=== PATIENT | female | born 1975 | race Two or more races ===

== ENCOUNTER 2018-04-05 12:09 | Emergency (ER) | payer SELFPAY ==
[~2018-04-05] VITALS: Ht 170.2 cm; Wt 79.4 kg
[2018-04-05] MEDS ORDERED: NKM (12:18)
[2018-04-05] MEDS ORDERED: Ketorolac 30mg Inj IM ONE (12:30)
--- NOTE | 2018-04-05 12:36 | Emergency Room Report ---
History of Present Illness General Chief Complaint: Lower Back Pain or Injury Source: Patient Present Illness HPI patient is a 42-year-old female with past medical history of diabetes type 2 controlled, here complaining of 3 days of low back pain after lifting heavy objects at work. Patient is rating the pain 7 out of 10 without any radiation denying tingling and numbness. Has taken [id number] Tylenol with minimal improvement. Patient claims that walking and leaning forward makes her pain worse. Denies injury, fall, accident. Denies bowel/urinary incontinence and saddle paresthesia. Denies SOB chest pain palpitation abdominal pain nausea vomiting and all other associated symptoms. Allergies: Coded Allergies: No Known Allergies (Unverified , 04/05/18) Patient History Past Medical History: see triage record Past Surgical History: none Now: No Reviewed Nursing Documentation: PMH: Agreed; PSxH: Agreed Nursing Documentation-PMH Past Medical History: No History, Except For Hx Diabetes: Yes Review of Systems All Other Systems: negative except mentioned in HPI Physical Exam Vital Signs Date Time Temp Pulse Resp B/P (MAP) Pulse Ox O2 Delivery O2 Flow Rate FiO2 04/05/18 12:13 97.4 82 20 153/93 97 Room Air 97.3 Sp02 EP Interpretation: reviewed, normal General Appearance: normal inspection, well appearing, no apparent distress, alert, GCS 15 Head: normocephalic Eyes: bilateral eye normal inspection, bilateral eye PERRL ENT: normal ENT inspection, hearing grossly normal, normal pharynx Neck: normal inspection, full range of motion, supple Respiratory: normal inspection, chest non-tender, lungs clear, no rhonchi, no wheezing Cardiovascular #1: normal inspection, normal peripheral pulses, regular rate, rhythm, no edema, no murmur Gastrointestinal: normal inspection, non tender, soft Rectal: deferred Genitourinary: deferred Musculoskeletal: digits/nails normal, gait/station normal, normal range of motion, tender - lumbar and sacral region, negative straight leg Neurologic: normal inspection, alert, oriented x3, responsive, unit nurse III-XII nml as tested, motor strength/tone normal Psychiatric: normal inspection, judgement/insight normal, memory normal Skin: normal inspection, normal color, no rash, warm/dry, palpation normal Lymphatic: normal inspection, no adenopathy Medical Decision Making PA Attestation All diagnosis and treatment plans were reviewed and discussed with supervising physician Dr. Tomas Diagnostic Impression: Primary Impression: Low back strain Additional Impression: Muscle spasm ER Course patient is a 42-year-old female with past medical history of diabetes type 2 controlled, here complaining of 3 days of low back pain after lifting heavy objects at work. Patient is rating the pain 7 out of 10 without any radiation denying tingling and numbness. Has taken [id number] Tylenol with minimal improvement. Patient claims that walking and leaning forward makes her pain worse. Denies injury, fall, accident. Denies bowel/urinary incontinence and saddle paresthesia. Denies SOB chest pain palpitation abdominal pain nausea vomiting and all other associated symptoms. Ddx considered but are not limited to muscle spasm, low back strain, oxygen Vital signs: are WNL, pt. is afebrile H&PE are most consistent with muscle spasm and low back strain ORDERS: Toradol 30 IM, naproxen 500 twice a day #30, patient has been told to start naproxen 24 hours after the Toradol has been administered. ED INTERVENTIONS: Toradol 30 IM DISCHARGE: At this time pt. is stable for d/c to home. Will provide printed patient care instructions, and any necessary prescriptions. Care plan and follow up instructions have been discussed with the patient prior to discharge. rice guidelines were explained to the patient, avoid strenuous physical activity , symptoms worsen not tingling numbness follow-up with the primary care provider Last Vital Signs Date Time Temp Pulse Resp B/P (MAP) Pulse Ox O2 Delivery O2 Flow Rate FiO2 04/05/18 12:13 97.4 82 20 153/93 97 Room Air 97.3 Disposition: HOME, SELF-CARE Condition: Stable Scripts Naproxen* (NAPROXEN*) 500 Mg Tablet 500 MG ORAL TWICE A DAY, #30 TAB Prov: Yajaira Walton 04/05/18 Patient Instructions: Lumbosacral Strain, Back Pain, Adult Additional Instructions: I was lifting heavy objects, take medication as directed, start taking naproxen 24 hours after Toradol has been administered. Rest hydrate elevates and also has seen icing and heating. Avoid strenuous physical activity, daily exercises advised if tingling numbness follows her primary care provider for possible MRI Yajaira Walton Apr 05, 2018 12:36
[2018-04-05] MEDS ORDERED: NAPROXEN500 M2 ORAL (12:37)
[2018-04-05 12:40] VITALS: BP 153/93
== END 2018-04-05 12:40 | disposition home or self-care (01) ==
LOC: EMR 12:40
DX: S39.012A Strain of muscle, fascia and tendon of lower back, initial encounter (principal); M62.838 Other muscle spasm; E11.9 Type 2 diabetes mellitus without complications; X50.0XXA Overexertion from strenuous movement or load, initial encounter; Y93.89 Activity, other specified; Y92.89 Other specified places as the place of occurrence of the external cause; Y99.0 Civilian activity done for income or pay
CPT/HCPCS: 96372; 99283; J1885

== ENCOUNTER 2018-06-13 06:41 | Emergency (ER) | payer SELFPAY ==
[~2018-06-13] VITALS: Ht 167.6 cm; Wt 81.6 kg
[~2018-06-13 06:41] MED LIST: NAPROXEN500 M2 ORAL; NKM
[2018-06-13 06:55] VITALS: BP 138/80
[2018-06-13] MEDS ORDERED: Ketorolac 60mg Inj IM ONE (07:15)
[2018-06-13 07:39] LABS: APPEARANCE,URINE SLIGHTLY CLOUDY; BILIRUBIN, URINE NEGATIVE (NEGATIVE); COLOR,URINE PALE YELLOW; GLUCOSE, URINE (UA) 4+ (NEGATIVE); KETONES,URINE NEGATIVE (NEGATIVE); LEUKOCYTE ESTERASE ,URINE 3+ (NEGATIVE); NITRITE,URINE NEGATIVE (NEGATIVE); PH,URINE 6 (4.5-8.0); PROTEIN,URINE NEGATIVE (NEGATIVE); UROBILINOGEN,URINE NORMAL MG/DL (0.0-1.0)
[2018-06-13] MEDS ORDERED: IBUPROFEN600 MG ORAL (07:46)
[2018-06-13] MEDS ORDERED: CYCLOBENZAPRINE10 MG ORAL (07:46)
[2018-06-13] MEDS ORDERED: CEPHALEXIN500 MG ORAL (07:54)
[2018-06-13 07:55] VITALS: BP 138/80
--- NOTE | 2018-06-13 14:50 | Emergency Room Report ---
History of Present Illness General Chief Complaint: Back Injury Source: Patient Present Illness HPI Patient is a 42-year-old female presented after increased back pain. The patient reports having prior fall. The patient been having chronic pain since then. Patient was reportedly on lifting restrictions. The patient reports having lifted a heavy object and subsequently having increased back pain. This is predominantly in the midline and slightly to the left. She denies any fever or vomiting. She denies any diarrhea. Pain is worse with extension. She denies any numbness or weakness to her extremities. She had been having normal bowel movements. Allergies: Coded Allergies: No Known Allergies (Unverified , 06/13/18) Patient History Past Medical History: see triage record Last Menstrual Period: 04/27 Now: No Reviewed Nursing Documentation: PMH: Agreed; PSxH: Agreed Nursing Documentation-PM Past Medical History: No History, Except For Hx Diabetes: Yes Review of Systems All Other Systems: negative except mentioned in HPI Physical Exam Vital Signs Date Time Temp Pulse Resp B/P (MAP) Pulse Ox O2 Delivery O2 Flow Rate FiO2 06/13/18 06:47 97.7 83 18 138/80 100 Room Air General Appearance: well appearing, no apparent distress, alert, GCS 15 Head: normocephalic, atraumatic ENT: hearing grossly normal, normal voice Neck: full range of motion, supple Respiratory: no respiratory distress, speaking full sentences Gastrointestinal: normal inspection, normal bowel sounds, non tender Genitourinary: no CVA tenderness Musculoskeletal: decreased range of mation - low back paraspinous tenderness Neurologic: normal inspection, alert, oriented x3, responsive, motor strength/ tone normal, normal gait Psychiatric: mood/affect normal Skin: no rash Medical Decision Making Diagnostic Impression: Primary Impression: Back pain Additional Impressions: Lumbar strain Urinary tract infection ER Course The patient presented for low back pain. Differential diagnosis included but was not limited to herniated disc, cauda equina syndrome, abdominal aortic aneurysm, perforated ulcer, spinal epidural abscess, spinal stenosis, lumbar fracture, metastatic lesion, pyelonephritis. The patient's symptoms are consistent with a lumbar strain. The patient was noted to have some evidence of urinary infection. Patient given prescription for antibiotics. Patient declined a CT imaging.The patient was advised follow-up with [facility] physician. Labs Test 06/13/18 07:28 Urine Color Pale yellow Urine Appearance Slightly cloudy Urine pH 6 (4.5-8.0) Urine Specific [place] 1.015 (1.005-1.035) Urine Protein Negative (NEGATIVE) Urine Glucose (UA) 4+ (NEGATIVE) Urine Ketones Negative (NEGATIVE) Urine Blood 1+ (NEGATIVE) Urine Nitrite Negative (NEGATIVE) Urine Bilirubin Negative (NEGATIVE) Urine Urobilinogen Normal MG/DL (0.0-1.0) Urine Leukocyte Esterase 3+ (NEGATIVE) Urine RBC 2-4 /HPF (0 - 2) Urine WBC 20-30 /HPF (0 - 2) Urine Squamous Epithelial Cells Many /LPF (NONE/OCC) Urine Bacteria Few /HPF (NONE) Urine Yeast Few /HPF (NONE) Urine HCG, Qualitative Negative (NEGATIVE) Last Vital Signs Date Time Temp Pulse Resp B/P (MAP) Pulse Ox O2 Delivery O2 Flow Rate FiO2 06/13/18 07:55 97.7 06/13/18 07:55 83 18 138/80 100 Room Air Status: improved Disposition: HOME, SELF-CARE Condition: Stable Scripts Cephalexin* (KEFLEX*) 500 Mg Capsule 500 MG ORAL EVERY 6 HOURS, #28 CAP Prov: Luke Tran MD 06/13/18 Cyclobenzaprine Hcl* (FLEXERIL*) 10 Mg Tablet 10 MG ORAL TID PRN for Muscle Spasm, #20 TAB Prov: Luke Tran MD 06/13/18 Ibuprofen* (MOTRIN*) 600 Mg Tablet 600 MG ORAL Q8H PRN for For Pain, #30 TAB 0 Refills Prov: Luke Tran MD 06/13/18 Departure Forms: Return to Work Return to Work in (Days): 3 Patient Instructions: Back Pain, Adult Luke Tran MD Jun 13, 2018 14:50
== END 2018-06-13 08:10 | disposition home or self-care (01) ==
LOC: MERGE 07:05 → EMR 07:05
DX: S39.012A Strain of muscle, fascia and tendon of lower back, initial encounter (principal); X50.0XXA Overexertion from strenuous movement or load, initial encounter; Y92.89 Other specified places as the place of occurrence of the external cause; G89.29 Other chronic pain; E11.9 Type 2 diabetes mellitus without complications; N39.0 Urinary tract infection, site not specified
CPT/HCPCS: 81003; 81025; 87086; 96372; 99283

== ENCOUNTER 2018-09-05 12:03 | Emergency (ER) | payer SELFPAY ==
[~2018-09-05] VITALS: Ht 162.6 cm; Wt 63.5 kg
[~2018-09-05 12:03] MED LIST changes: +CEPHALEXIN500 MG ORAL; +CYCLOBENZAPRINE10 MG ORAL; +IBUPROFEN600 MG ORAL
[2018-09-05 12:18] VITALS: BP 119/71
--- NOTE | 2018-09-05 12:24 | NUR ---
ED Nurse Note: Patient presents to ER due to low back pain, right, media side after lifting and carrying heavy boxes and trash bags today; reports no numbnses or tinging in BLE. Denies twisting back. Reports no loss of bowel or bladder control. Guarding noted. Ambulated to the chair with steady gait.
[2018-09-05] MEDS ORDERED: Ketorolac 30mg Inj IM ONE (12:45)
--- NOTE | 2018-09-05 12:56 | Emergency Room Report ---
History of Present Illness General Chief Complaint: Lower Back Pain or Injury Source: Patient Present Illness HPI 42-year-old female presents to the emergency department complaining of acute onset of 10 out of 10 in severity right-sided low back pain times one day. Patient reports that she noticed her symptoms when she lifted a heavy garbage bag at work. Patient reports having her pain exacerbated upon bending over or standing up very straight. Patient states she is able to walk she denies previous injury to her back. Patient denies midline back pain. Denies numbness tingling or loss of sensation or gross motor movements of the extremities, incontinence of bowel or bladder. Denies CP, Palpitations, LOC, AMS, dizziness, Changes in Vision, weakness or a sudden severe headache. Denies recent spinal procedures or cancer. Allergies: Coded Allergies: No Known Allergies (Unverified , 04/05/18) Patient History Past Medical History: see triage record Past Surgical History: none Pertinent Family History: none Last Menstrual Period: on period Reviewed Nursing Documentation: PMH: Agreed; PSxH: Agreed Nursing Documentation-PMH Past Medical History: No History, Except For Hx Diabetes: Yes Review of Systems All Other Systems: negative except mentioned in HPI Physical Exam Vital Signs Date Time Temp Pulse Resp B/P (MAP) Pulse Ox O2 Delivery O2 Flow Rate FiO2 09/05/18 12:18 98.1 84 14 119/71 99 Room Air Sp02 EP Interpretation: reviewed, normal General Appearance: alert, GCS 15, non-toxic, mild distress Head: normocephalic, atraumatic Eyes: bilateral eye normal inspection, bilateral eye PERRL ENT: hearing grossly normal, normal voice Neck: full range of motion Respiratory: lungs clear, normal breath sounds, speaking full sentences Cardiovascular #1: regular rate, rhythm, no edema Gastrointestinal: normal bowel sounds, soft Genitourinary: normal inspection, no CVA tenderness Musculoskeletal: back normal, gait/station normal - compensatory, decreased range of motion - Due to pain, pain occures and 40* forward flexion. , tender - TTP to the right paraspinal musculature of the lumbar spine. no midline spinous process TTP or step offs. Neurologic: alert, oriented x3, responsive, motor strength/tone normal, sensory intact, speech normal, other - no evidence of incontinence or saddle anesthesia, grossly normal Psychiatric: judgement/insight normal Skin: normal color, no rash, warm/dry, well hydrated Lymphatic: normal inspection, no adenopathy Medical Decision Making PA Attestation Dr. plasencia is my supervising Physician whom patient management has been discussed with. Diagnostic Impression: Primary Impression: Lumbosacral strain Qualified Codes: S39.012A - Strain of muscle, fascia and tendon of lower back , initial encounter ER Course 42-year-old female presents to the emergency department complaining of acute onset of 10 out of 10 in severity right-sided low back pain times one day. Patient reports that she noticed her symptoms when she lifted a heavy garbage bag at work. Patient reports having her pain exacerbated upon bending over or standing up very straight. Patient states she is able to walk she denies previous injury to her back. Patient denies midline back pain. Denies numbness tingling or loss of sensation or gross motor movements of the extremities, incontinence of bowel or bladder. Denies CP, Palpitations, LOC, AMS, dizziness, Changes in Vision, weakness or a sudden severe headache. Denies recent spinal procedures or cancer. Ddx considered but are not limited to Fracture, dislocation, contusion, Sprain/ Strain/Spasm, Epidural abscess, Neoplastic mets. Vital signs: are WNL, pt. is afebrile H&PE are most consistent with musculoskeletal injury will perform imaging to r/ o fractures/dislocations. ORDERS: - X-ray not warranted at this time, no bony ttp. ED INTERVENTIONS: - Toradol IM -Soma PO -Lidoderm TP -I do not identify an emergent condition at this time. With current presentation , pt. is stable for close outpatient follow up and conservative treatment. D/ w pt. to return promptly to ED with worsening or new symptoms.- Pt. verbalizes' understanding and agreement with proposed treatment plan.proposed treatment plan. DISCHARGE: At this time pt. is stable for d/c to home. Will provide printed patient care instructions, and any necessary prescriptions. Care plan and follow up instructions have been discussed with the patient prior to discharge. Last Vital Signs Date Time Temp Pulse Resp B/P (MAP) Pulse Ox O2 Delivery O2 Flow Rate FiO2 09/05/18 12:18 98.1 14 119/71 99 Room Air 09/05/18 12:18 84 Disposition: HOME, SELF-CARE Condition: Stable Departure Forms: Return to Work Return to Work Date: Sep 10, 2018 Work Restrictions: No Heavy Lifting, No Prolonged Standing Other Restrictions: light duty x 1 week, May return Sooner if Symptoms have resolved. Return to Full Activity: Sep 18, 2018 Patient Instructions: Lumbosacral Strain, Low Back Sprain With Rehab[facility] Additional Instructions: Take medications as directed. Follow up with a Primary Care Provider in 3-5 days, even if your symptoms have resolved. --Please review list of primary care clinics, if you do not already have a primary care provider Return sooner to ED if new symptoms occur, or current symptoms become worse. Do not drink alcohol, drive, or operate heavy machinery while taking Robaxin ( Muscle Relaxers) as this may cause drowsiness. - Please note that this Emergency Department Report was dictated using [employer] spec technology software, occasionally this can lead to erroneous entry secondary to interpretation by the dictation equipment. Ghazala Galeas Sep 05, 2018 12:56
[2018-09-05] MEDS ORDERED: ROBAXIN-750750 MG PO (12:58)
[2018-09-05] MEDS ORDERED: IBUPROFEN600 MG ORAL (13:04)
[2018-09-05 13:21] VITALS: BP 119/71
--- NOTE | 2018-09-05 13:26 | NUR ---
ER Nurse Note: A/OX4. PT IS CLEARED BY DR.K. FIELDS INSTRUCTION AND PRESCRIPTIONS GIVEN, PT VERBALIZED UNDERSTSANDING. IV/ID WRISTBAND REMOVED. ALL BELONGINGS TAKEN BY PT. DENIES ANY PAIN AT THIS TIME. PT AMBULATED OUT OF ER WITH STEADY GAIT.
== END 2018-09-05 13:26 | disposition home or self-care (01) ==
LOC: EMR 12:50
DX: S39.012A Strain of muscle, fascia and tendon of lower back, initial encounter (principal); X50.0XXA Overexertion from strenuous movement or load, initial encounter; Y92.89 Other specified places as the place of occurrence of the external cause; E11.9 Type 2 diabetes mellitus without complications
CPT/HCPCS: 96372; 99283; J1885